=== PATIENT | male | born 1995 | race Caucasian/White ===

== ENCOUNTER 2016-09-27 01:18 | Emergency (ER) | payer OTHER ==
[~2016-09-27] VITALS: Ht 175.3 cm; Wt 72.7 kg
[2016-09-27 01:21] VITALS: TEMP 97.3
[2016-09-27 02:29] VITALS: BP 130/80; PULSE 80
== END 2016-09-27 02:45 | disposition home or self-care (01) ==
LOC: COL.ER 01:18
DX: S61.215A Laceration without foreign body of left ring finger without damage to nail, initial encounter (principal); W25.XXXA Contact with sharp glass, initial encounter; Y92.003 Bedroom of unspecified non-institutional (private) residence as the place of occurrence of the external cause